=== PATIENT | female | born 1980 | race African-American/Black ===

== ENCOUNTER → 2017-04-03 | Outpatient (CLI) | payer OTHER ==
[~2017-04-03] MED LIST: EXCEDRIN MIGRAI1 TA2 PO; FAMOTIDINE PO; PREDNISONE10 MG PO; SINGULAIR PO; ZYRTEC10 M2
--- NOTE | ~2017-04-03 | US128 ---
[id number] [facility]. [facility] [address]. [place], [place] [address] [id number] O MR#: [id number] Acc #: [id number] NAME: BON BUSTAMANTE : 1980 SEX: F STUDY DATE/TIME: 04/03/2017 15:27 UNIT: [facility] ROOM: STUDY DESCRIPTION: US Thyroid Attending Physician: Teena Mckeon A.P.R.N. Referring Physician: Teena Mckeon A.P.R.N. Ordering Physician: Teena Mckeon A.P.R.N. Primary Care Physician: Teena Mckeon A.P.R.N. MEDICAL IMAGING REPORT This report is preliminary unless electronic signature is present EXAM Thyroid ultrasound date of study 04/03/2017 CLINICAL HISTORY Thyromegaly on physical exam with the sensation of neck fullness for about 3 years. FINDINGS Gland is normal in overall size for patient age and normal in vascularity and echotexture. No nodules are seen. IMPRESSION Normal thyroid ultrasound. Dictated by... Juan Hensley M.D. THIS IS AN ELECTRONICALLY VERIFIED REPORT Juan Hensley M.D. at 04/04/2017 5:19 PM MIGUEL ÁNGEL/rita TD: 04/04/2017 13:40 JOB #: [id number] MEDICAL IMAGING REPORT Page 1 of 1 COPY
== END | disposition home or self-care (01) ==
LOC: CGUS 14:27
DX: E01.0 Iodine-deficiency related diffuse (endemic) goiter (principal)
CPT/HCPCS: 76536